=== PATIENT | female | born 2000 | race Caucasian/White ===

== ENCOUNTER 2023-03-30 07:08 | Day surgery (SDC) | payer OTHER ==
[~2023-03-30] VITALS: Ht 175.3 cm; Wt 87.1 kg
[~2023-03-30 07:08] MED LIST: SERT-141 PO
[2023-03-30] MEDS ORDERED: fentaNYL 100 MCG/2 ML INJECTION As Ordered ONE (07:46)
[2023-03-30] MEDS ORDERED: propofoL 200 MG/20 ML VIAL As Ordered ONE (07:46)
[2023-03-30] MEDS ORDERED: MIDAZOLAM INJ 2MG/2ML VIAL As Ordered ONE (07:46)
[2023-03-30] MEDS ORDERED: ONDANSETRON 4MG 2ML VIAL As Ordered ONE (07:47)
[2023-03-30] MEDS ORDERED: LIDOCAINE 2% 100MG/5ML SDV (FOR ANES.) As Ordered ONE (07:50)
[2023-03-30] MEDS: ceFAZolin SOD 2 GM in IV 1 EA IV ONE (08:34)
[2023-03-30] MEDS: LR 1,000 ML IV SCH ×2 (08:35→09:51)
[2023-03-30] MEDS ORDERED: ACETAMINOPHEN 1000MG 100ML IV BAG As Ordered ONE (08:43)
[2023-03-30] MEDS ORDERED: ONDANSETRON 4MG 2ML VIAL IV PRN (09:35)
[2023-03-30] MEDS ORDERED: oxyCODONE 5MG TAB PO PRN (09:35)
[2023-03-30] MEDS ORDERED: METOCLOPRAMIDE INJ 10MG/2ML VIAL IV PRN (09:35)
[2023-03-30 11:01] VITALS: BP 106/55; TEMP 97.8; O2SAT 97
== END 2023-03-30 11:05 | disposition home or self-care (01) ==
LOC: M SDC 07:08
PROVIDERS: ATTEND Podiatrist Foot & Ankle Surgery
DX: M21.611 Bunion of right foot (principal); M20.11 Hallux valgus (acquired), right foot; F41.9 Anxiety disorder, unspecified; F32.A Depression, unspecified; Z79.899 Other long term (current) drug therapy; F17.290 Nicotine dependence, other tobacco product, uncomplicated
CPT/HCPCS: 28297; 76000; 81025; 97116; C1713; J0131; J0690; J1100; J2250; J2405; J3010

== ENCOUNTER 2023-03-31 21:05 | Emergency (ER) | payer OTHER ==
[~2023-03-31] VITALS: Ht 175.3 cm; Wt 81.8 kg
[2023-03-31 21:07] VITALS: TEMP 98.2; O2SAT 97
[2023-03-31 21:22] VITALS: BP 142/83
== END 2023-03-31 22:49 | disposition left against medical advice (07) ==
LOC: M ED 21:05
DX: Z53.21 Procedure and treatment not carried out due to patient leaving prior to being seen by health care provider (principal)

== ENCOUNTER 2023-07-24 08:39 | Emergency (ER) | payer OTHER ==
[~2023-07-24] VITALS: Ht 175.3 cm; Wt 87.5 kg
[2023-07-24 09:11] LABS: HEMATOCRIT 37.1 % (36.0-47.0); HEMOGLOBIN 12.2 g/dl (12.0-15.5); MEAN CORPUSCULAR HEMOGLOBIN 28.8 pg (27.0-33.0); MEAN CORPUSCULAR HGB CONC 32.9 g/dl (32.0-36.5); MEAN CORPUSCULAR VOLUME 87.7 fl (80.0-96.0); PLATELET COUNT, AUTOMATED 262 10^3/uL (150-450); RED BLOOD COUNT 4.23 10^6/uL (4.00-5.40); WHITE BLOOD COUNT 4.2 10^3/uL (4.0-10.0)
[2023-07-24 10:31] VITALS: BP 128/76; TEMP 98.7; O2SAT 100
== END 2023-07-24 10:32 | disposition home or self-care (01) ==
LOC: M ED 08:54
DX: O03.9 Complete or unspecified spontaneous abortion without complication (principal); Z79.899 Other long term (current) drug therapy

== ENCOUNTER → 2023-11-18 | Outpatient (CLI) | payer OTHER | LOC: M WHC 14:34 | PROVIDERS: ATTEND Obstetrics & Gynecology | DX: O20.9 Hemorrhage in early pregnancy, unspecified (principal) ==

== ENCOUNTER → 2023-11-21 | Outpatient (CLI) | payer OTHER | LOC: M PLALAB 11:36 | PROVIDERS: ATTEND Obstetrics & Gynecology | DX: O02.0 Blighted ovum and nonhydatidiform mole (principal) ==

== ENCOUNTER → 2023-11-23 | Outpatient (CLI) | payer OTHER | LOC: M PLALAB 11:47 | PROVIDERS: ATTEND Obstetrics & Gynecology | DX: O26.851 Spotting complicating pregnancy, first trimester (principal) ==

== ENCOUNTER 2023-12-02 07:55 | Day surgery (SDC) | payer OTHER ==
[~2023-12-02] VITALS: Ht 175.3 cm; Wt 81.4 kg
[~2023-12-02 07:55] MED LIST changes: +FERR325T3 PO
[2023-12-02 08:25] LABS: HEMOGLOBIN 11.7 g/dl (12.0-15.5); MEAN CORPUSCULAR HEMOGLOBIN 29.1 pg (27.0-33.0); MEAN CORPUSCULAR HGB CONC 32.5 g/dl (32.0-36.5); MEAN CORPUSCULAR VOLUME 89.6 fl (80.0-96.0); PLATELET COUNT, AUTOMATED 250 10^3/uL (150-450); RED BLOOD COUNT 4.02 10^6/uL (4.00-5.40); WHITE BLOOD COUNT 6.1 10^3/uL (4.0-10.0)
[2023-12-02] MEDS ORDERED: fentaNYL 100 MCG/2 ML INJECTION As Ordered ONE (08:34)
[2023-12-02] MEDS ORDERED: MIDAZOLAM INJ 2MG/2ML VIAL As Ordered ONE (08:34)
[2023-12-02] MEDS ORDERED: propofoL 200 MG/20 ML VIAL As Ordered ONE (08:36)
[2023-12-02] MEDS ORDERED: LIDOCAINE 2% 100MG/5ML SDV (FOR ANES.) As Ordered ONE (08:36)
[2023-12-02] MEDS ORDERED: ACETAMINOPHEN 1000MG 100ML IV BAG As Ordered ONE (08:37)
[2023-12-02] MEDS ORDERED: KETOROLAC 60MG 2ML VIAL As Ordered ONE (08:38)
[2023-12-02] MEDS ORDERED: ONDANSETRON 4MG 2ML VIAL As Ordered ONE (08:38)
[2023-12-02] MEDS: DOXYCYCLINE HYCLATE 100MG TABLET PO ONE (08:45)
[2023-12-02] MEDS: LR 1,000 ML IV SCH (08:45)
[2023-12-02] MEDS: LIDOCAINE 1% SDV 30ML VIAL As Ordered ONE (09:30)
[2023-12-02] MEDS: SILVER NITRATE APPLICATOR (1 = QTY 10) As Ordered ONE (09:38)
[2023-12-02] MEDS ORDERED: fentaNYL 100 MCG/2 ML INJECTION IV PRN (10:05)
[2023-12-02] MEDS ORDERED: oxyCODONE 5MG TAB PO PRN (10:05)
[2023-12-02] MEDS ORDERED: ONDANSETRON 4MG 2ML VIAL IV PRN (10:05)
[2023-12-02] MEDS ORDERED: MORPHINE 2 MG/ML 1ML VIAL IV PRN (10:05)
[2023-12-02 11:33] VITALS: BP 113/69; TEMP 97.5; O2SAT 100
== END 2023-12-02 11:37 | disposition home or self-care (01) ==
LOC: M SDC 07:55
PROVIDERS: ATTEND Obstetrics & Gynecology
DX: O02.1 Missed abortion (principal); F41.9 Anxiety disorder, unspecified; F32.A Depression, unspecified; Z79.899 Other long term (current) drug therapy; Z87.891 Personal history of nicotine dependence
CPT/HCPCS: 36415; 59820; 85027; 86850; 86900; 86901; 88305; J0131; J1100; J1885; J2250; J2405; J3010